=== PATIENT | female | born 1945 | race Caucasian/White ===

== ENCOUNTER 2016-11-11 14:39 | Emergency (ER) | payer MEDICARE ==
[2016-11-11] MEDS ORDERED: TYLENOL 325 MG PO STA (14:54)
[2016-11-11] MEDS ORDERED: DUONEB 0.5-3 MG/3 ml Neb IH ONE ×2 (14:55→15:10)
[2016-11-11] MEDS ORDERED: TYLENOL 325 MG ONE (15:03)
[2016-11-11 15:08] LABS: BASOPHIL % 0.4 % (0.0-0.4); Eosinophil % 4.5 % (0.00-5.0); Granulocytes % 67.9 % (36.0-66.0); Lymphocytes % 14.6 % (24.0-44.0); Mean Cell Volume 98.4 fl (78-100); Mean Platelet Volume 9.6 fl (6-9.5); Monocytes % 12.6 % (0.0-12.0); Platelet Count 225 K/mm3 (150-450); Red Blood Count 3.65 M/mm3 (4.1-5.4); White Blood Count 4.9 K/mm3 (4.0-10.5)
--- NOTE | 2016-11-11 15:08 | ERPHSYRPT ---
- History of Present Illness Time Seen by Provider: 11/11/16 14:48 Source: patient Patient Subjective Stated Complaint: COUGH Triage Nursing Assessment: PRODUCTIVE COUGH SINCE SATURDAY. ALL OVER BODY ACHES. NO FEVER. DENIES N/V/D. SKIN WARM AND DRY. Physician History: CC: cough Hx: 71 y/o patient of Dr Maude Ayala. She has 3 day hx of mylagias, body aches , and cough and sore throat. She has hx of asthma and uses nebs and xanax for asthma. She has chronic shoulder pain for which she takes percocet. He has hx of DM and CHF. Symptoms moderate. Timing/Duration: day(s) (3) Allergies/Adverse Reactions: CORA Inhibitors Allergy (Verified 11/11/16 14:59) atenolol Allergy (Verified 11/11/16 14:59) bupropion [From Wellbutrin] Allergy (Verified 11/11/16 14:59) ciprofloxacin [From Cipro] Allergy (Verified 11/11/16 14:59) dexamethasone Allergy (Verified 11/11/16 14:59) hydralazine Allergy (Verified 11/11/16 14:59) ibuprofen Allergy (Verified 11/11/16 14:59) linagliptin [From Tradjenta] Allergy (Verified 11/11/16 14:59) lisinopril Allergy (Verified 11/11/16 14:59) olmesartan [From Benicar] Allergy (Verified 11/11/16 14:59) prednisone Allergy (Verified 11/11/16 14:59) sertraline [From Zoloft] Allergy (Verified 11/11/16 14:59) valsartan [From Diovan] Allergy (Verified 11/11/16 14:59) Home Medications: Albuterol Sulfate [Proair Hfa] 8.5 gm IH QID 11/11/16 [History] Alprazolam 1 mg [Xanax 1 mg] 1 mg PO DAILY 11/11/16 [History] Alprazolam 1 mg [Xanax 1 mg] 2 mg PO HS 11/11/16 [History] Aspirin [Aspir-Low] 81 mg PO DAILY 11/11/16 [History] Carvedilol 25 mg PO BID 11/11/16 [History] Diclofenac Sodium Gel [Voltaren GEL] 4 gm TOP QIDPRN PRN 11/11/16 [History ] Docusate Sodium 100 mg [Colace 100 MG] 100 mg PO DAILY 11/11/16 [History] Fluticasone/Salmeterol [Advair 250-50 Diskus] 1 puff IH BID 11/11/16 [History] Furosemide 40 mg PO DAILY 11/11/16 [History] Montelukast Sodium [Singulair] 5 mg PO DAILY 11/11/16 [History] Nitroglycerin 0.4 mg Tablet [Nitrostat 0.4 MG Tablet] 0.4 mg SL UD [History] Omeprazole 20 MG [Prilosec 20 mg] 20 mg PO DAILY 11/11/16 [History] Oxycodone HCl/Acetaminophen [Oxycodone-Acetaminophen 5-325] 1 each PO QID [History] Potassium Chloride [Klor-Con] 20 meq PO BID 11/11/16 [History] Pravastatin Sodium 40 mg PO DAILY 11/11/16 [History] Hx Tetanus, Diphtheria Vaccination/Date Given: Yes Hx Influenza Vaccination/Date Given: Yes Hx Pneumococcal Vaccination/Date Given: Yes Immunizations Up to Date: Yes - Review of Systems Constitutional: Chills, Fatigue, Malaise, No Fever Eyes: No Symptoms Ears, Nose, & Throat: Throat Pain Respiratory: Cough Abdominal/Gastrointestinal: No Nausea, No Vomiting, No Diarrhea Genitourinary Symptoms: No Dysuria Musculoskeletal: Myalgias, No Neck Pain Skin: No Rash Neurological: No Headache All Other Systems: Reviewed and Negative - Past Medical History Pertinent Past Medical History: Yes Cardiac History: Angina, Congestive Heart Failure, High Cholesterol Respiratory History: Asthma Endocrine Medical History: Diabetes Type II GI Medical History: GERD Psycho-Social History: Panic Disorder Other Medical History: CHRONIC SHOULDER PAIN - Past Surgical History Past Surgical History: Yes Gastrointestinal: Cholecystectomy - Social History Smoking Status: Never smoker Exposure to second hand smoke: No Drug Use: none Patient Lives Alone: No - Nursing Vital Signs Nursing Vital Signs: Initial Vital Signs Temperature 100.5 F Temperature Source Rectal Pulse Rate 81 Respiratory Rate 18 Blood Pressure 146/78 - Physical Exam General Appearance: alert Eye Exam: PERRL/EOMI Ears, Nose, Throat Exam: normal ENT inspection, moist mucous membranes Neck Exam: normal inspection, non-tender, supple Respiratory Exam: crackles/rales (left base) Cardiovascular Exam: regular rate/rhythm, No murmur Gastrointestinal/Abdomen Exam: soft, No tenderness, No distention Extremity Exam: normal inspection, other (right arm has chronic decreased ROM) Neurologic Exam: alert, oriented x 3, cooperative, sensation nml, No motor deficits Skin Exam: warm, dry, No rash SpO2 Interpretation: normal SpO2: 97 Oxygen Delivery: Room Air - Course Nursing assessment & vital signs reviewed: Yes - Radiology Exams cxr X-ray Interpretation: Reviewed by me (mild LLL inf, CM, compressions) Ordered Tests: Active Orders 24 hr Category Date Time Status Cath for Specimen-Straight STAT Care 11/11/16 14:54 Active IV Insertion STAT Care 11/11/16 14:54 Active Pulse Oximetry (ED) STAT Care 11/11/16 14:54 Active CHEST 2 VIEWS (PA AND LAT) Stat Exams 11/11/16 14:54 Taken CBC W DIFF Stat Lab 11/11/16 15:00 Completed CMP Stat Lab 11/11/16 15:00 Completed INFLUENZA A+B Stat Lab 11/11/16 15:00 Completed Lactic Acid Urgent Lab 11/11/16 15:00 Completed UA W/ MICROSCOPIC Stat Lab 11/11/16 15:00 Completed Respiratory Nebulizer STAT RT 11/11/16 14:55 Completed Medication Summary Discontinued Medications Generic Name Dose Route Start Last Admin Trade Name Jorgeq PRN Reason Stop Dose Admin Acetaminophen 650 mg 11/11/16 14:54 11/11/16 15:04 Tylenol 325 Mg PO 11/11/16 14:55 650 mg STAT STA Administration Acetaminophen Confirm 11/11/16 15:03 Tylenol 325 Mg Administered 11/11/16 15:04 Dose 650 mg .ROUTE .STK-MED ONE Albuterol/Ipratropium 3 ml 11/11/16 14:55 11/11/16 15:15 Duoneb 0.5-3 Mg/3 Ml Neb IH 11/11/16 14:56 3 ml STAT ONE Administration Albuterol/Ipratropium Confirm 11/11/16 15:10 Duoneb 0.5-3 Mg/3 Ml Neb Administered 11/11/16 15:11 Dose 3 ml IH .STK-MED ONE Lab/Rad Data: Laboratory Result Diagrams 11/11/16 15:00 11/11/16 15:00 Laboratory Results 11/11/16 11/11/16 11/11/16 Range/Units 15:00 15:00 15:00 WBC 4.9 (4.0-10.5) K/mm3 RBC 3.65 L (4.1-5.4) M/mm3 Hgb 11.3 L (12.0-16.0) gm/dl Hct 35.9 (35-47) % MCV 98.4 (78-100) fl MCH 30.9 (26-32) pg MCHC 31.5 L (32-36) g/dl RDW 13.0 (11.5-14.0) % Plt Count 225 (150-450) K/mm3 MPV 9.6 H (6-9.5) fl Gran % 67.9 H (36.0-66.0) % Lymphocytes % 14.6 L (24.0-44.0) % Monocytes % 12.6 H (0.0-12.0) % Eosinophils % 4.5 (0.00-5.0) % Basophils % 0.4 (0.0-0.4) % Basophils # 0.02 (0-0.4) Sodium 141 (136-145) mEq/L Potassium 4.1 (3.5-5.1) mEq/L Chloride 103 (98-107) mEq/L Carbon Dioxide 28.7 (21-32) mEq/L Anion Gap 13.7 (5-15) MEQ/L BUN 31 H (9-20) mg/dL Creatinine 1.19 (0.55-1.30) mg/dl Estimated GFR 48 ML/MIN Glucose 102 (70-110) MG/DL Lactic Acid 1.1 (0.4-2.0) Calcium 9.3 (8.5-10.1) mg/dL Total Bilirubin 0.3 (0.2-1.0) mg/dL AST 13 L (15-37) U/L ALT 13 (12-78) U/L Alkaline Phosphatase 120 H (46-116) U/L Serum Total Protein 7.6 (6.4-8.2) gm/dL Albumin 3.6 (3.4-5.0) g/dL Ur Collection Type Urine Color (YELLOW) Urine Appearance (CLEAR) Urine pH (5-6) Ur Specific Bour[place] (1.005-1.025) Urine Protein (Negative) Urine Glucose (UA) (NEGATIVE) mg/dL Urine Ketones (NEGATIVE) Urine Nitrite (NEGATIVE) Urine Bilirubin (NEGATIVE) Urine Urobilinogen (0-1) mg/dL Urine WBC (Auto) (NEGATIVE) Urine RBC (Auto) (0-5) Roddy/ul Urine Microscopic RBC (0-2) /HPF Ur Epithelial Cells (FEW) /HPF Urine Bacteria (NEGATIVE) /HPF Hyaline Casts (0-2) /LPF Influenza Type A Ag (NEGATIVE) Influenza Type B Ag (NEGATIVE) Specimen Received 11/11/16 11/11/16 Range/Units 15:00 15:00 WBC (4.0-10.5) K/mm3 RBC (4.1-5.4) M/mm3 Hgb (12.0-16.0) gm/dl Hct (35-47) % MCV (78-100) fl MCH (26-32) pg MCHC (32-36) g/dl RDW (11.5-14.0) % Plt Count (150-450) K/mm3 MPV (6-9.5) fl Gran % (36.0-66.0) % Lymphocytes % (24.0-44.0) % Monocytes % (0.0-12.0) % Eosinophils % (0.00-5.0) % Basophils % (0.0-0.4) % Basophils # (0-0.4) Sodium (136-145) mEq/L Potassium (3.5-5.1) mEq/L Chloride (98-107) mEq/L Carbon Dioxide (21-32) mEq/L Anion Gap (5-15) MEQ/L BUN (9-20) mg/dL Creatinine (0.55-1.30) mg/dl Estimated GFR ML/MIN Glucose (70-110) MG/DL Lactic Acid (0.4-2.0) Calcium (8.5-10.1) mg/dL Total Bilirubin (0.2-1.0) mg/dL AST (15-37) U/L ALT (12-78) U/L Alkaline Phosphatase (46-116) U/L Serum Total Protein (6.4-8.2) gm/dL Albumin (3.4-5.0) g/dL Ur Collection Type CATH Urine Color YELLOW (YELLOW) Urine Appearance CLEAR (CLEAR) Urine pH 5.5 (5-6) Ur Specific [place] 1.010 (1.005-1.025) Urine Protein NEGATIVE (Negative) Urine Glucose (UA) NEGATIVE (NEGATIVE) mg/dL Urine Ketones NEGATIVE (NEGATIVE) Urine Nitrite NEGATIVE (NEGATIVE) Urine Bilirubin NEGATIVE (NEGATIVE) Urine Urobilinogen 0.2 (0-1) mg/dL Urine WBC (Auto) NEGATIVE (NEGATIVE) Urine RBC (Auto) TRACE-INTACT (0-5) Roddy/ul Urine Microscopic RBC 0-2 (0-2) /HPF Ur Epithelial Cells RARE (FEW) /HPF Urine Bacteria RARE (NEGATIVE) /HPF Hyaline Casts 0-2 (0-2) /LPF Influenza Type A Ag NEGATIVE (NEGATIVE) Influenza Type B Ag NEGATIVE (NEGATIVE) Specimen Received 11/11/16 1520 - Progress Progress Note: 11/11/16 15:47 She has likely viral syndrome but some left lower lobe pneumonia. Will Rx docycycline. Continue alb. Counseled pt/family regarding: lab results, diagnosis, need for follow-up, rad results - Departure Time of Disposition: 15:47 Departure Disposition: Home Clinical Impression: Left lower lobe pneumonia Qualifiers: Pneumonia type: due to unspecified organism Qualified Code(s): J18.1 - Lobar pneumonia, unspecified organism Condition: Stable Critical Care Time: No Referrals: DOCTOR,NO FAMILY [NON-STAFF PHY W/O PRIVILEGES] - Instructions: Pneumonia -- Adult Additional Instructions: Tylenol sparingly for fever or discomfort. Rx doxycycline. Continue albuterol nebs. Follow up later this week with Dr Maude Ayala. Prescriptions: Doxycycline Hyclate [Vibramycin] 1 cap PO BID #20 capsule
[2016-11-11 15:09] LABS: Mean Corpuscular Hemoglobin 30.9 pg (26-32)
[2016-11-11 15:24] LABS: ALBUMIN 3.6 g/dL (3.4-5.0); ANION GAP 13.7 MEQ/L (5-15); BILIRUBIN,TOTAL 0.3 mg/dL (0.2-1.0); Carbon Dioxide 28.7 mEq/L (21-32); Potassium 4.1 mEq/L (3.5-5.1); Total Protein 7.6 gm/dL (6.4-8.2)
[2016-11-11 15:37] LABS: COMPLETE URINE MICROSCOPIC? YES; Collection Type CATH; Ph 5.5 (5-6)
[2016-11-11 15:44] LABS: Bacteria RARE /HPF (NEGATIVE); Epithelial Cells RARE /HPF (FEW); Hyaline Casts 0-2 /LPF (0-2)
[2016-11-11 15:52] VITALS: BP 133/48; PULSE 85; O2SAT 98
--- NOTE | 2016-11-11 20:33 | XRAY ---
Indication: Fever and cough. Comparison: March 02, 2009 PA/lateral chest obtained. Lateral view limited as the patient could not raise arm. Again bibasilar atelectasis/scarring left greater than right, less than before. No focal infiltrate, consolidation, or large effusion. Heart is not enlarged. Vascularity normal. Bony thorax intact again with mild osteopenia and degenerative changes. Interval right shoulder arthroplasty. Impression: Nonacute chest with chronic features.
== END 2016-11-11 15:57 | disposition home or self-care (01) ==
LOC: ED 14:39
DX: J18.1 Lobar pneumonia, unspecified organism (principal); R05 Cough; J45.909 Unspecified asthma, uncomplicated; R53.83 Other fatigue; E11.9 Type 2 diabetes mellitus without complications; I50.9 Heart failure, unspecified; E78.00 Pure hypercholesterolemia, unspecified; Z79.82 Long term (current) use of aspirin; Z79.899 Other long term (current) drug therapy; R09.89 Other specified symptoms and signs involving the circulatory and respiratory systems
CPT/HCPCS: 99283; 36000; 81000; 36415; 85025; 80053; 87400; 71020; 94640; 83605; P9612

== ENCOUNTER 2021-04-06 14:57 | Emergency (ER) | payer MEDICARE ==
--- NOTE | 2021-04-06 15:29 | XRAY ---
Indication: Chest pain. Comparison: November 11, 2016. Portable chest again demonstrates bibasilar discoid atelectasis/scarring. No focal infiltrate, consolidation, or large effusion. Heart not enlarged. Bony thorax intact again with osteopenia, degenerative changes, and right shoulder arthroplasty. Impression: Continued nonacute chest with chronic features.
[2021-04-06 15:35] LABS: Absolute Neutrophil Ct (ANC) 4.28 (1.4-6.9); BASOPHIL % 0.3 % (0.0-0.4); Basophil (Absolute #) 0.02 (0-0.4); Eosinophil % 2.6 % (0.00-5.0); Eosinophil (Absolute #) 0.18 (0-0.5); Hematocrit 34.1 % (35-47); Hemoglobin 10.7 gm/dl (12.0-16.0); Lymphocyte (Absolute #) 1.62 (1.0-4.6); Lymphocytes % 23.5 % (24.0-44.0); Mean Cell Volume 97.7 fl (78-100); Mean Corpuscular Hemoglobin 30.7 pg (26-32); Mean Corpuscular Hgb Concent. 31.4 g/dl (32-36); Mean Platelet Volume 9.3 fl (7.5-11.0); Monocytes % 11.6 % (0.0-12.0); Platelet Count 240 K/mm3 (150-450); Red Blood Count 3.49 M/mm3 (4.1-5.4); Red Cell Distribution Width 13.4 % (11.5-14.0); White Blood Count 6.9 K/mm3 (4.0-10.5)
[2021-04-06 15:50] LABS: ALBUMIN 4.1 g/dL (3.5-5.0); ANION GAP 11.7 MEQ/L (5-15); BILIRUBIN,TOTAL 0.4 mg/dL (0.2-1.3); Creatinine 1 1.12 mg/dL (0.52-1.04); EST GLOMERULAR FILTRATION RATE 50.4 ML/MIN; MAGNESIUM 2.3 mg/dL (1.6-2.3)
--- NOTE | 2021-04-06 16:08 | ERPHSYRPT ---
- History of Present Illness Time Seen by Provider: 04/06/21 15:20 Historian: patient Exam Limitations: no limitations Patient Subjective Stated Complaint: Chest pain Triage Nursing Assessment: Patient brought into ED via EMS and transferred to bed with assist of 4. Patient A+O x3. Patient's skin pink, warm and dry. Patient states she called EMS for chest pain and SOB. Patient states he pulse was 103 and rapid. EMS arrived and noted patient in Afib with RVR. Pateitn given 25mg of cardizem, Aspirin 324mg and Nitro X 1 with relief of Chest pain and SOB. Patient currently denies pain or discomfort. Physician History: Patient is a 75-year-old female who with a history of CHF presents to our ED with complaints of chest pain and shortness of breath. Patient arrived via EMS. Symptoms started just prior to arrival. EMS reports that patient was in A. fib with RVR per their EKG. Patient was given a dose of Cardizem 25 mg IVP. She also received aspirin 324. Patient additionally received nitroglycerin sublingu al x2. Upon arrival A. fib with RVR had resolved. Patient's symptoms of chest pain and shortness of breath had resolved as well. She currently has no complaints. Patient states that she has had 2 bouts of congestive heart failure in the past. Her current atg java developer is Dr. Jason Montoya in [place]. Patient reports that if she needs to be admitted she prefers to be transferred to [facility] under the care of Dr. Montoya. Patient voices no other complaints concerns at this time. Timing/Duration: today Activities at Onset: activity Quality: aching Location: substernal Severity of Pain-Max: moderate Severity of Pain-Current: mild Modifying Factors: Improves With: nothing, nitroglycerin, aspirin Associated Symptoms: denies symptoms Prior Chest Pain/Cardiac Workup: no prior chest pain Nitro Today/Relief: 0.4 mg x 2 Aspirin Treatment Today: 81 mg x 4 Allergies/Adverse Reactions: CORA Inhibitors Allergy (Verified 04/06/21 15:10) atenolol Allergy (Verified 04/06/21 15:10) bupropion [From Wellbutrin] Allergy (Verified 04/06/21 15:10) ciprofloxacin [From Cipro] Allergy (Verified 04/06/21 15:10) dexamethasone Allergy (Verified 04/06/21 15:10) ferrous sulfate Allergy (Verified 04/06/21 15:10) hydralazine Allergy (Verified 04/06/21 15:10) ibuprofen Allergy (Verified 04/06/21 15:10) linagliptin [From Tradjenta] Allergy (Verified 04/06/21 15:10) lisinopril Allergy (Verified 04/06/21 15:10) olmesartan [From Benicar] Allergy (Verified 04/06/21 15:10) prednisone Allergy (Verified 04/06/21 15:10) sertraline [From Zoloft] Allergy (Verified 04/06/21 15:10) valsartan [From Diovan] Allergy (Verified 04/06/21 15:10) Home Medications: ALPRAZolam 1 MG [Xanax 1 mg] 2 mg PO HS 11/11/16 [History] Aspirin [Aspir-Low] 81 mg PO DAILY 11/11/16 [History] Furosemide 40 mg PO DAILY 11/11/16 [History] Montelukast Sodium [Singulair] 10 mg PO DAILY 11/11/16 [History] Nitroglycerin 0.4 mg Tablet [Nitrostat 0.4 MG Tablet] 0.4 mg SL UD 11/11/16 [History] Potassium Chloride [Klor-Con] 20 meq PO DAILY 11/11/16 [History] Pravastatin Sodium 40 mg PO DAILY 11/11/16 [History] carvediloL [Carvedilol] 25 mg PO BID 11/11/16 [History] Losartan Potassium 50 mg [Cozaar 50 MG] 1 tab PO DAILY 04/06/21 [History] Hx Tetanus, Diphtheria Vaccination/Date Given: Yes Hx Influenza Vaccination/Date Given: Yes Hx Pneumococcal Vaccination/Date Given: Yes Immunizations Up to Date: Yes Travel Risk - International Travel Have you traveled outside of the country in past 3 weeks: No - Coronavirus Screening Are you exhibiting any of the following symptoms?: No Close contact with a COVID-19 positive Pt in past 14-21 Days: No - Vaccine Status Have you recieved a Covid-19 vaccination: No - Review of Systems Constitutional: No Symptoms, No Fever, No Chills Eyes: No Symptoms Ears, Nose, & Throat: No Symptoms Respiratory: No Symptoms, No Cough, No Dyspnea Cardiac: No Symptoms, No Chest Pain, No Edema, No Syncope Abdominal/Gastrointestinal: No Symptoms, No Abdominal Pain, No Nausea, No Vomit ing, No Diarrhea Genitourinary Symptoms: No Symptoms, No Dysuria Musculoskeletal: No Symptoms, No Back Pain, No Neck Pain Skin: No Symptoms, No Rash Neurological: No Symptoms, No Dizziness, No Focal Weakness, No Sensory Changes Psychological: No Symptoms Endocrine: No Symptoms Hematologic/Lymphatic: No Symptoms Immunological/Allergic: No Symptoms All Other Systems: Reviewed and Negative - Past Medical History Pertinent Past Medical History: Yes Cardiac History: Angina, Congestive Heart Failure, High Cholesterol Respiratory History: Asthma Endocrine Medical History: Diabetes Type II GI Medical History: GERD Psycho-Social History: Panic Disorder Other Medical History: CHRONIC SHOULDER PAIN - Past Surgical History Past Surgical History: Yes Gastrointestinal: Cholecystectomy - Social History Smoking Status: Never smoker Exposure to second hand smoke: No Drug Use: none Patient Lives Alone: No - Nursing Vital Signs Nursing Vital Signs: Initial Vital Signs Temperature 98.4 F 04/06/21 15:11 Pulse Rate 77 04/06/21 15:11 Respiratory Rate 20 04/06/21 15:11 Blood Pressure 107/54 04/06/21 15:11 O2 Sat by Pulse Oximetry 98 04/06/21 15:11 Pain Scale Pain Intensity 0 - Physical Exam General Appearance: no apparent distress, alert Eye Exam: PERRL/EOMI, eyes nml inspection Ears, Nose, Throat Exam: normal ENT inspection, moist mucous membranes Neck Exam: normal inspection, non-tender, supple, full range of motion Respiratory Exam: normal breath sounds, lungs clear, No respiratory distress Cardiovascular Exam: regular rate/rhythm, normal heart sounds Gastrointestinal/Abdomen Exam: soft, No tenderness, No mass Back Exam: normal inspection, No CVA tenderness, No vertebral tenderness Extremity Exam: normal inspection, normal range of motion Neurologic Exam: alert, oriented x 3, cooperative, normal mood/affect, sensation nml, No motor deficits Skin Exam: normal color, warm, dry Lymphatic Exam: No adenopathy SpO2 Interpretation: normal SpO2: 98 O2 Delivery: Room Air - Course Nursing assessment & vital signs reviewed: Yes EKG Interpreted by Me: RATE, A-fib (Poor quality EKG. There appears to be significant artifact which we cannot correct), Left Bundle Branch Block (102) - Radiology Exams Chest X-ray Interpretation: Teleradiologist Report (Continued nonacute chest with chronic features. No focal infiltrate or consolidation. No large effusion. Heart not enlarged. Bony thorax intact with osteopenia and degenerative changes of the right shoulder arthroplasty.) Ordered Tests: Active Orders 24 hr Category Date Time Status Reimbursement Auditor STAT Care 04/06/21 15:13 Active EKG-ER Only STAT Care 04/06/21 15:12 Active IV Insertion STAT Care 04/06/21 15:12 Active Pulse Oximetry (ED) STAT Care 04/06/21 15:12 Active CHEST 1 VIEW (PORTABLE) Stat Exams 04/06/21 15:13 Completed CBC W DIFF Stat Lab 04/06/21 15:30 Completed CMP Stat Lab 04/06/21 15:30 Completed MAGNESIUM Stat Lab 04/06/21 15:30 Completed TROPONIN Q3H Lab 04/06/21 15:30 Completed TROPONIN Q3H Lab 04/06/21 18:15 Ordered TROPONIN Q3H Lab 04/06/21 21:15 Ordered TROPONIN Q3H Lab 04/07/21 00:15 Ordered TROPONIN Q3H Lab 04/07/21 03:15 Ordered UA W/RFX UR CULTURE Stat Lab 04/06/21 15:42 Ordered Lab/Rad Data: Laboratory Result Diagrams 04/06/21 15:30 04/06/21 15:30 Laboratory Results 04/06/21 04/06/21 04/06/21 Range/Units 15:30 15:30 15:30 WBC 6.9 (4.0-10.5) K/mm3 RBC 3.49 L (4.1-5.4) M/mm3 Hgb 10.7 L (12.0-16.0) gm/dl Hct 34.1 L (35-47) % MCV 97.7 (78-100) fl MCH 30.7 (26-32) pg MCHC 31.4 L (32-36) g/dl RDW 13.4 (11.5-14.0) % Plt Count 240 (150-450) K/mm3 MPV 9.3 (7.5-11.0) fl Gran % 62.0 (36.0-66.0) % Eos # (Auto) 0.18 (0-0.5) Absolute Lymphs (auto) 1.62 (1.0-4.6) Absolute Monos (auto) 0.80 (0.0-1.3) Lymphocytes % 23.5 L (24.0-44.0) % Monocytes % 11.6 (0.0-12.0) % Eosinophils % 2.6 (0.00-5.0) % Basophils % 0.3 (0.0-0.4) % Absolute Granulocytes 4.28 (1.4-6.9) Basophils # 0.02 (0-0.4) Sodium 137 (137-145) mmol/L Potassium 4.0 (3.5-5.1) mmol/L Chloride 105 (98-107) mmol/L Carbon Dioxide 24 (22-30) mmol/L Anion Gap 11.7 (5-15) MEQ/L BUN 42 H (7-17) mg/dL Creatinine 1.12 H (0.52-1.04) mg/dL Estimated GFR 50.4 ML/MIN Glucose 117 H (74-106) mg/dL Calcium 9.0 (8.4-10.2) mg/dL Magnesium 2.3 (1.6-2.3) mg/dL Total Bilirubin 0.40 (0.2-1.3) mg/dL AST 20 (14-36) U/L ALT 16 (0-35) U/L Alkaline Phosphatase 100 (38-126) U/L Troponin I < 0.012 (0.000-0.034) ng/mL Serum Total Protein 7.0 (6.3-8.2) g/dL Albumin 4.1 (3.5-5.0) g/dL - Progress Progress: improved Air Movement: good Progress Note: Repeat EKG reveals patient now in sinus rhythm. EKG was performed at 4:21 PM. There is a left axis deviation. Rate is 78. Patient remains pain-free. I spoke to Dr. Smith at approximately 4:[address] Cordero is a atg java developer covering Dr. Montoya at [facility]. Patient accepted for transfer. Covid test requested. Covid test will be performed prior to transfer. Plan of care discussed with patient. She agrees to transfer to [facility] for further evaluation and treatment. 04/06/21 16:32 Blood Culture(s) Obtained: No Antibiotics given: No Counseled pt/family regarding: diagnosis, rad results - Departure Departure Disposition: Transfer Clinical Impression: ACS (acute coronary syndrome), Shortness of breath, Atrial fibrillation with RVR, Normocytic anemia Condition: Stable Critical Care Time: No Referrals: MARYAM JANG MD [Primary Care Provider] -
[2021-04-06 16:31] LABS: Appearance CLEAR (CLEAR); Bacteria MODERATE /HPF (NEGATIVE); Bilirubin NEGATIVE (NEGATIVE); Blood NEGATIVE Ery/ul (0-5); Epithelial Cells RARE /HPF (FEW); Glucose NEGATIVE (NEGATIVE); Ketones NEGATIVE (NEGATIVE); Leukocyte Esterase SMALL (NEGATIVE); Nitrite NEGATIVE (NEGATIVE); Protein,Urine Dip NEGATIVE (Negative); RBC 0-2 /HPF (0-2); Specific Gravity 1.006 (1.005-1.025); Urobilinogen NEGATIVE mg/dL (0-1)
[2021-04-06 17:19] LABS: COVID AG -BINAX NOW RAPID TEST NEGATIVE (NEGATIVE)
[2021-04-06 20:11] VITALS: BP 116/64; PULSE 78; O2SAT 100
[2021-04-06] MEDS ORDERED: Sodium Chloride 0.9% 1000 ML 1,000 ML ONE (20:45)
== END 2021-04-06 20:47 | disposition short-term general hospital (02) ==
LOC: ED 14:57
DX: I24.9 Acute ischemic heart disease, unspecified (principal); R06.02 Shortness of breath; I48.91 Unspecified atrial fibrillation; D64.9 Anemia, unspecified; I50.9 Heart failure, unspecified; Z79.899 Other long term (current) drug therapy
CPT/HCPCS: 36415; 71045; 80053; 81001; 83735; 84484; 85025; 87077; 87086; 87186; 93005; 93041; 94760; 99000; 99285